=== PATIENT | female | born 1945 | race Caucasian/White ===

== ENCOUNTER 2022-03-13 16:18 | Emergency (ER) | payer OTHER, SELFPAY ==
[2022-03-13] VITALS (20 sets, daily range): BP systolic 140–193; BP diastolic 70–92; PULSE 86–98; RESP 13–26; TEMP 36.7; O2SAT 93–96; BMI 24.3
--- NOTE | 2022-03-13 16:25 | DI.CT.S_ITS ---
PROCEDURE: CT ANGIO HEAD INDICATIONS: bleed TECHNIQUE: After the administration of intravenous contrast, 1 mm thick sections acquired through the [place] [facility] [place]. Postcontrast 4.5 mm thick sections then re-acquired from the foramen magnum to the vertex. 10 mm thick jkcxibg-hzfmxvhkx-skjtzklppw (MIP) reformats were acquired of the central intracranial vasculature. For radiation dose reduction, the following was used: automated exposure control, adjustment of mA and/or kV according to patient size. COMPARISON: [facility], CT, CT STROKE, 03/13/2022, 16:22. FINDINGS: Image quality: Excellent. Anterior circulation: Intracranial internal carotid arteries demonstrate mild atherosclerotic calcifications without significant stenosis. The flow within the paired anterior cerebral arteries is normal and symmetric. The flow within the middle cerebral arteries is normal and symmetric, although the MCA branches on the left are displaced superiorly due to mass effect. The anterior communicating artery is seen. No aneurysms are seen. Posterior circulation: Visualized portions of the vertebral arteries demonstrate normal caliber, and join to form a normal appearing basilar artery. A prominent left posterior communicating artery is seen with hypoplastic P1 segment of the left [employer]IST, a normal variant. Flow within the posterior cerebral arteries is otherwise normal and symmetric. No aneurysms are seen. CSF spaces: Basal cisterns are patent. No extra-axial fluid collections. Brain: Hyperdense intraparenchymal hematoma is again seen in the left temporal lobe with surrounding vasogenic edema. There is mild mass effect with narrowing of the left lateral ventricle but no significant midline shift. Skull and face: Calvarium and facial bones appear intact, without suspicious lesions. Sinuses: Visualized sinuses and mastoids are clear. IMPRESSION: 1. Left temporal lobe intraparenchymal hematoma is redemonstrated as seen on the noncontrast CT performed immediately prior. Mass-effect is again seen with mild narrowing of the left lateral ventricle without midline shift. Enhancement of the adjacent parenchyma within the anterior left temporal lobe may be secondary to breakdown of the blood-brain barrier versus an underlying enhancing mass. Recommend MRI of the brain with and without contrast when clinically feasible for further evaluation. 2. No intracranial aneurysm is seen. No large vessel occlusion identified. Approved by: Kennedy Smalls M.D. on 03/13/2022 at 17:12
--- NOTE | 2022-03-13 16:25 | DI.CT.S_ITS ---
PROCEDURE: CT STROKE INDICATIONS: bleed. RIGHT SIDED FACIAL DROOP TECHNIQUE: Noncontrast 4.5 mm thick angled axial sections acquired from the foramen magnum to the vertex, with coronal reformats. For radiation dose reduction, the following was used: automated exposure control, adjustment of mA and/or kV according to patient size. COMPARISON: None. FINDINGS: Image quality: Excellent. CSF spaces: Basal cisterns are patent. No extra-axial fluid collections. The ventricles are symmetric in size and shape. Brain: There is a hyperdense mass in the left temporal lobe measuring 3.2 cm AP, 1.7 cm transverse and 1.5 cm cephalocaudal, compatible with acute hemorrhage. Smaller foci hyperdensity are seen inferior to the mass, compatible with small foci of intraparenchymal bleed. There is cerebral edema in the left temporal lobe with the area involved measuring 5.8 x 3.1 x 4.4 cm. No significant midline shift. No intracranial bleeds or masses. There is cerebral volume loss for age, with resultant ventricular and sulcal prominence. There are periventricular and deep white matter chronic small vessel ischemic changes. There is intracranial internal carotid artery atherosclerosis. Skull and face: Calvarium and visualized facial bones appear intact, without suspicious lesions. Sinuses: Visualized sinuses and mastoids are clear. IMPRESSION: Acute intracranial hemorrhage involving the left temporal lobe. There is prominent cerebral edema surrounding the hemorrhage. No midline shift. Differential diagnoses are intratumoral hemorrhage versus hemorrhagic stroke. The result was discussed with Dr. Pace prior to dictation. This study fulfills neurological imaging criteria for inclusion or exclusion of acute stroke therapies based on available published neurological guidelines. Dictated by: Norberto Batres M.D. on 03/13/2022 at 16:31 Approved by: Norberto Batres M.D. on 03/13/2022 at 16:36
--- NOTE | 2022-03-13 16:26 | ED_ITS ---
HPI - Neuro Symptoms/Deficit General Chief Complaint: Neuro Symptoms/Deficit Stated Complaint: Code Stroke Time Seen by Provider: 03/13/22 16:25 History of Present Illness HPI Narrative: 77-year-old female nonsmoker with out any reported chronic medical problems presents by EMS for evaluation of stroke. Her last known normal was about 11:00 a.m. today. She was out with family or friends who noted that she was beginning to get a bit confused and slurring her words with facial droop on the right side. Over the course of the afternoon she became increasingly confused and has had some weakness of her right upper extremity. She denies any trauma or head injury and she takes no blood thinners. In the field blood pressures were in the 190s, she is activated as a code stroke and taken directly to CT. Related Data Allergies Allergy/AdvReac Type Severity Reaction Status Date / Time No Known Drug Allergies Allergy Verified 03/13/22 16:45 Review of Systems Review of Systems Narrative: GENERAL: Denies chills, fatigue, malaise, fever, sweats. HEENT: Denies sinus pain, ear pain, sore throat, difficulty swallowing, dizz iness. RESPIRATORY: Denies dyspnea, cough, wheezing, hemoptysis, sputum. CARDIOVASCULAR: Denies chest pain, palpitations, orthopnea, edema, GASTROINTESTINAL: Denies nausea, vomiting, abdominal pain, diarrhea, constipation, melena. : Denies dysuria, frequency, incontinence, hematuria, urinary retention. MUSCULOSKELETAL: denies weakness, joint pain, or bony pain SKIN: Denies rash, skin lesions, or other NEUROLOGIC: See HPI PSYCHIATRIC: No concerning psychosocial issues. 12 point review of systems is negative except for those stated above Exam Narrative Exam Narrative: GENERAL: [77] year old patient appears stated age. Well-developed patient, in mild distress. GCS15 HEAD: Atraumatic. Normocephalic. EYES: Pupils equal round and reactive. Extraocular motions intact. No scleral icterus. No injection or drainage. ENT: Nose without bleeding, purulent drainage. Throat without erythema, to nsillar hypertrophy or exudate. Airway patent. NECK: Trachea midline. Non tender CARDIOVASCULAR: Regular rate and rhythm without murmurs, gallops, or rubs. RESPIRATORY: Clear to auscultation. Breath sounds equal bilaterally. No wheezes, rales, or rhonchi. GASTROINTESTINAL: Abdomen soft, non-tender, nondistended. EXTREMITIES: No edema or joint tenderness. BACK: Nontender without deformity or crepitance. No flank tenderness. NEURO: AOx3. SKIN: No rash or erythema of visible areas Initial Vital Signs Initial Vital Signs: Vital Signs Pulse Rate 97 H 03/13/22 16:35 Respiratory Rate 15 03/13/22 16:35 Pulse Oximetry 96 03/13/22 16:35 Oxygen Delivery Method 03/13/22 16:35 Scores NIH Stroke Scale Level of Conciousness: Alert, keenly responsive Ask month/age: Answers both questions correctly. Open/close eyes, close hand: Performs both tasks correctly Best gaze horizontal: Normal Visual roque: No visual loss Facial palsy: Minor paralysis, flattened nasolabial fold, asymmetry on smiling Left arm drift: No drift for full 10 sec Right arm drift: Drifts down, not to bed Left leg drift: No drift for full 5 sec Right leg drift: No drift for full 5 sec Limb ataxia: Absent Sensory on face/arms/legs: Normal, no sensory loss Best language: No aphasia, normal Dysarthria: Normal Extinction or inattention: No abnormality Total NIH Stroke scale score: 2 Course Orders Ordered: Discontinued Medications Nicardipine HCl 25 mg/ Sodium (Chloride) 250 mls @ 50 mls/hr IV TITRATE KARLO; Protocol Last Titration: 03/13/22 17:40 Dose: 5 mg/hr, 50 mls/hr Documented By: Admin: 03/13/22 16:48 Dose: 5 mg/hr, 50 mls/hr Documented By: AT Nicardipine HCl 25 mg/ Sodium (Chloride) 250 mls @ 50 mls/hr IV TITRATE KARLO; Protocol Last Admin: 03/13/22 17:19 Dose: Not Given Documented By: ASHLEY Consultations Consultation #1: Call to [facility] [place]. They are on another Code Stroke will call back Time: 16:40 Consultation #2: Discussed case with on-call stroke at [facility] ([place]), happy to accept patient, requests blood pressure control with nicardipine below 160. Request call back with coagulation studies Consultation #3: call back to [facility], ED provider happy to accept in transfer to their ED. [facility] en route. Patient and family aware of and in agreement with plan Vital Signs Vital signs: Vital Signs - 8 hr 03/13/22 16:37 03/13/22 16:35 03/13/22 16:37 Pulse Rate 95 H 97 H 96 H Respiratory Rate 15 15 15 Blood Pressure 166/77 H Pulse Oximetry 95 96 95 Oxygen Delivery Method Room Air Room Air 03/13/22 16:37 03/13/22 16:40 03/13/22 16:40 Pulse Rate 98 H Respiratory Rate 18 Blood Pressure 166/92 H 166/77 H Pulse Oximetry 94 Oxygen Delivery Method 03/13/22 16:45 03/13/22 16:45 03/13/22 16:50 Pulse Rate 94 H Respiratory Rate 18 Blood Pressure 193/86 H 181/84 H Pulse Oximetry 93 Oxygen Delivery Method 03/13/22 16:50 03/13/22 16:55 03/13/22 16:55 Pulse Rate 88 87 Respiratory Rate 15 13 Blood Pressure 159/76 H Pulse Oximetry 96 95 Oxygen Delivery Method Room Air MDM - Neuro Symptoms/Deficit Lab Data Result diagrams: 03/13/22 16:20 03/13/22 16:20 Labs: Lab Results 03/13/22 03/13/22 03/13/22 Range/Units 16:20 16:20 16:20 WBC 7.3 (4.5-11.0) X10^3/uL RBC 4.42 (4.0-5.2) X10^6/uL Hgb 14.5 (12.0-16.0) g/dL Hct 42.9 (36-46) % MCV 96.9 (80-100) fL MCH 32.7 (26-34) PG MCHC 33.7 (30-36) % RDW 12.9 (11.6-14.8) % Plt Count 162 (150-400) X10^3/uL Neut % (Auto) 82.7 H (50-75) % Lymph % (Auto) 13.4 L (25-40) % [place] % (Auto) 3.0 (3-14) % Eos % (Auto) 0.4 L (2-4) % Baso % (Auto) 0.5 (0-2) % Neut # (Auto) 6000 (9810-0400) /uL Lymph # (Auto) 1000 L (0510-0145) /uL [place] # (Auto) 200 (0-900) /uL Eos # (Auto) 0 (0-450) /uL Baso # (Auto) 0 (0-100) /uL PT 11.0 (10.1-12.7) SECONDS INR 1.0 (0.9-1.3) APTT 24 L (26-36) SECONDS Sodium 139 (137-145) mmol/L Potassium 4.7 (3.4-5.1) mmol/L Chloride 100 (98-107) mmol/L Carbon Dioxide 30 (22-32) mmol/L BUN 16 (7-17) mg/dL Creatinine 0.70 (0.52-1.04) mg/dL Estimated GFR > 60 (>60) mL/min BUN/Creatinine Ratio 22.9 H (6-22) Glucose 134 H (80-110) mg/dL Calcium 9.6 (8.4-10.2) mg/dL Total Bilirubin 0.8 (0.2-1.3) mg/dL AST 49 H (14-36) IU/L ALT 29 (<35) IU/L Alkaline Phosphatase 98 (38-126) U/L Total Creatine Kinase 243 H (30-135) U/L CK-MB (CK-2) 7.27 H (<2.37) ng/mL CK-MB (CK-2) Rel Index 3.0 (1.5-5.0) % Troponin I < 0.012 (0.01-0.034) ng/mL Total Protein 8.3 H (6.3-8.2) g/dL Albumin 4.6 (3.5-5.0) g/dL Globulin 3.7 (1.7-4.1) g/dL Albumin/Globulin Ratio 1.2 (1.0-2.8) Urine Color Urine Appearance Urine pH (4.5-8.0) Ur Specific [place] (1.000-1.035) Urine Protein (Negative) Urine Glucose (UA) (Negative) g/dL Urine Ketones (NEGATIVE) Urine Occult Blood (Negative) Urine Nitrate (Negative) Urine Bilirubin (NEGATIVE) Urine Urobilinogen (0.2) E.U./dL Ur Leukocyte Esterase (NEGATIVE) Urine RBC (0-5/HPF) Urine WBC (0-5/HPF) Ur Squamous Epith Cells (0-5/HPF) Amorphous Sediment Urine Bacteria (None) Urine Mucus (Negative) Ur Culture Indicated? U Opiates 300ng/mL cut (Negative) Ur Oxycodone Screen (Negative) Urine Methadone Screen (Negative) Ur Barbiturates Screen (Negative) U Tricyclic Antidepress (Negative) Ur Phencyclidine Scrn (Negative) Ur Amphetamines Screen (Negative) U Methamphetamines Scrn (Negative) Ur MDMA Scrn (Ecstasy) (Negative) U Benzodiazepines Scrn (Negative) Urine Cocaine Screen (Negative) U Marijuana (THC) Screen (Negative) Ethyl Alcohol < 10 ( - 10) mg/dL SARS-CoV-2 (PCR) (Negative) 03/13/22 03/13/22 03/13/22 Range/Units 16:36 17:13 17:13 WBC (4.5-11.0) X10^3/uL RBC (4.0-5.2) X10^6/uL Hgb (12.0-16.0) g/dL Hct (36-46) % MCV (80-100) fL MCH (26-34) PG MCHC (30-36) % RDW (11.6-14.8) % Plt Count (150-400) X10^3/uL Neut % (Auto) (50-75) % Lymph % (Auto) (25-40) % [place] % (Auto) (3-14) % Eos % (Auto) (2-4) % Baso % (Auto) (0-2) % Neut # (Auto) (0929-3312) /uL Lymph # (Auto) (0476-4447) /uL [place] # (Auto) (0-900) /uL Eos # (Auto) (0-450) /uL Baso # (Auto) (0-100) /uL PT (10.1-12.7) SECONDS INR (0.9-1.3) APTT (26-36) SECONDS Sodium (137-145) mmol/L Potassium (3.4-5.1) mmol/L Chloride (98-107) mmol/L Carbon Dioxide (22-32) mmol/L BUN (7-17) mg/dL Creatinine (0.52-1.04) mg/dL Estimated GFR (>60) mL/min BUN/Creatinine Ratio (6-22) Glucose (80-110) mg/dL Calcium (8.4-10.2) mg/dL Total Bilirubin (0.2-1.3) mg/dL AST (14-36) IU/L ALT (<35) IU/L Alkaline Phosphatase (38-126) U/L Total Creatine Kinase (30-135) U/L CK-MB (CK-2) (<2.37) ng/mL CK-MB (CK-2) Rel Index (1.5-5.0) % Troponin I (0.01-0.034) ng/mL Total Protein (6.3-8.2) g/dL Albumin (3.5-5.0) g/dL Globulin (1.7-4.1) g/dL Albumin/Globulin Ratio (1.0-2.8) Urine Color Yellow Urine Appearance Clear Urine pH 6.0 (4.5-8.0) Ur Specific [place] 1.020 (1.000-1.035) Urine Protein Negative (Negative) Urine Glucose (UA) Negative (Negative) g/dL Urine Ketones Negative (NEGATIVE) Urine Occult Blood Trace-intact (Negative) Urine Nitrate Negative (Negative) Urine Bilirubin Negative (NEGATIVE) Urine Urobilinogen 0.2 (0.2) E.U./dL Ur Leukocyte Esterase Negative (NEGATIVE) Urine RBC 1-5/hpf (0-5/HPF) Urine WBC 1-5/hpf (0-5/HPF) Ur Squamous Epith Cells 1-5 /hpf (0-5/HPF) Amorphous Sediment 1+ Urine Bacteria None seen (None) Urine Mucus 1+ H (Negative) Ur Culture Indicated? Cult not indicated U Opiates 300ng/mL cut Negative (Negative) Ur Oxycodone Screen Negative (Negative) Urine Methadone Screen Negative (Negative) Ur Barbiturates Screen Negative (Negative) U Tricyclic Antidepress Negative (Negative) Ur Phencyclidine Scrn Negative (Negative) Ur Amphetamines Screen Negative (Negative) U Methamphetamines Scrn Negative (Negative) Ur MDMA Scrn (Ecstasy) Negative (Negative) U Benzodiazepines Scrn Negative (Negative) Urine Cocaine Screen Negative (Negative) U Marijuana (THC) Screen Positive H (Negative) Ethyl Alcohol ( - 10) mg/dL SARS-CoV-2 (PCR) Negative (Negative) Point of Care Testing Glucose POC [address] scan - head: Radiologist's Impression: Close Head CTA 03/13/[address] (Signed) Norberto Batres - 03/13/22 Launch?[address] [address] [address] Scan Report Signed Patient: Mary Salmon MR#: [id number] : 1945 Acct:[id number] Age/Sex: 77 / F Date of Service: 03/13/22 Loc: ED Accession Number: [id number] ?? Procedure: CT Stroke Ordering Provider: Samy Pace D.O. PROCEDURE:? CT STROKE ? INDICATIONS:? bleed.? RIGHT SIDED FACIAL DROOP ? TECHNIQUE:? Noncontrast 4.5 mm thick angled axial sections acquired from the foramen magnum to the vertex, with coronal reformats.? For radiation dose reduction, the following was used:? automated exposure control, adjustment of mA and/or kV according to patient size.? ? COMPARISON:? None. ? FINDINGS:? Image quality:? Excellent.? ? CSF spaces:? Basal cisterns are patent.? No extra-axial fluid collections.? The ventricles are symmetric in size and shape.? ? Brain:? There is a hyperdense mass in the left temporal lobe measuring 3.2 cm AP, 1.7 cm transverse and 1.5 cm cephalocaudal, compatible with acute hemorrhage.? Smaller foci hyperdensity are seen inferior to the mass, compatible with small foci of intraparenchymal bleed.? There is cerebral edema in the left temporal lobe with the area involved measuring 5.8 x 3.1 x 4.4 cm.? No significant midline shift.? No intracranial bleeds or masses.? There is cerebral volume loss for age, with resultant ventricular and sulcal prominence.? There are periventricular and deep white matter chronic small vessel ischemic changes.? There is intracranial internal carotid artery atherosclerosis.? ? Skull and face:? Calvarium and visualized facial bones appear intact, without suspicious lesions.? ? Sinuses:? Visualized sinuses and mastoids are clear.? ? IMPRESSION:? Acute intracranial hemorrhage involving the left temporal lobe.? There is prominent cerebral edema surrounding the hemorrhage.? No midline shift.? Differential diagnoses are intratumoral hemorrhage versus hemorrhagic stroke. ? The result was discussed with Dr. Pace prior to dictation. ? This study fulfills neurological imaging criteria for inclusion or exclusion of acute stroke therapies based on available published neurological guidelines.? ? ? Dictated by: Norberto Batres M.D. on 03/13/2022 at 16:31 ? ? Approved by: Norberto Batres M.D. on 03/13/2022 at 16:36 ? CT Head Angio: Radiologist's Impression: [address] [address] [address] Scan Report Signed Patient: Mary Salmon MR#: [id number] : 1945 Acct:[id number] Age/Sex: 77 / F Date of Service: 03/13/22 Loc: ED Accession Number: [id number] ?? Procedure: CT angio head Ordering Provider: Samy Pace D.O. PROCEDURE:? CT ANGIO HEAD ? INDICATIONS:? bleed ? TECHNIQUE:? After the administration of intravenous contrast, 1 mm thick sections acquired through the [place] [facility] [place].? Postcontrast 4.5 mm thick sections then re-acquired from the foramen magnum to the vertex.? 10 mm thick jzyxdub-keiyyolle-ewdlzoxvtb (MIP) reformats were acquired of the central intracranial vasculature.? For radiation dose reduction, the following was used:? automated exposure control, adjustment of mA and/or kV according to patient size.? ? COMPARISON:? [facility], CT, CT STROKE, 03/13/2022, 16:22. ? FINDINGS:? Image quality:? Excellent.? ? Anterior circulation:? Intracranial internal carotid arteries demonstrate mild atherosclerotic calcifications without significant stenosis.? The flow within the paired anterior cerebral arteries is normal and symmetric.? The flow within the middle cerebral arteries is normal and symmetric, although the MCA branches on the left are displaced superiorly due to mass effect.? The anterior communicating artery is seen.? No aneurysms are seen.? ? Posterior circulation:? Visualized portions of the vertebral arteries demonstrate normal caliber, and join to form a normal appearing basilar artery.? A prominent left posterior communicating artery is seen with hypoplastic P1 segment of the left REGISTERED NURSES, a normal variant.? Flow within the posterior cerebral arteries is otherwise normal and symmetric.? No aneurysms are seen.? ? CSF spaces:? Basal cisterns are patent.? No extra-axial fluid collections.? ? Brain:? Hyperdense intraparenchymal hematoma is again seen in the left temporal lobe with surrounding vasogenic edema.? There is mild mass effect with narrowing of the left lateral ventricle but no significant midline shift. ? Skull and face:? Calvarium and facial bones appear intact, without suspicious lesions.? ? Sinuses:? Visualized sinuses and mastoids are clear.? ? IMPRESSION:? 1. Left temporal lobe intraparenchymal hematoma is redemonstrated as seen on the noncontrast CT performed immediately prior.? Mass-effect is again seen with mild narrowing of the left lateral ventricle without midline shift.? Enhancement of the adjacent parenchyma within the anterior left temporal lobe may be secondary to breakdown of the blood-brain barrier versus an underlying enhancing mass.? Recommend MRI of the brain with and without contrast when clinically feasible for further evaluation. ? 2. No intracranial aneurysm is seen.? No large vessel occlusion identified. ? ? ? Approved by: Kennedy Smalls M.D. on 03/13/2022 at 17:12? Critical Care Time Critical Care Time Critical Care Time: Yes Total Critical Care Time: 30 Attestation: The high probability of a clinically significant, sudden or life threatening deterioration of the [Neuro] system(s) required my full and direct attention, intervention and personal management. The aggregate critical care time was [30] minutes. This time is in addition to time spent performing reported procedures but includes the following: [x] Data Review and interpretation [x] Patient assessment and monitoring of vital signs [x] Documentation [x] Medication orders and management Discharge Plan Departure Patient Disposition: [facility] Clinical Impression: Intraparenchymal hemorrhage of brain, HTN (hypertension)
[2022-03-13 16:34] LABS: Add Manual Diff / Slide Review NO; Basophils Absolute Auto 0 /uL (0-100); Basophils Percent Auto 0.5 % (0-2); Eosinophils Absolute Auto 0 /uL (0-450); Eosinophils Percent Auto 0.4 % (2-4); Hematocrit 42.9 % (36-46); Hemoglobin 14.5 g/dL (12.0-16.0); Lymphocytes Absolute Auto 1000 /uL (1100-4500); Lymphocytes Percent Auto 13.4 % (25-40); Mean Corpuscular HGB Conc 33.7 % (30-36); Mean Corpuscular Hemoglobin 32.7 PG (26-34); Mean Corpuscular Volume 96.9 fL (80-100); Monocytes Absolute Auto 200 /uL (0-900); Neutrophils Absolute Auto 6000 /uL (1500-7000); Neutrophils Percent Auto 82.7 % (50-75); Platelet Count 162 X10^3/uL (150-400); Red Blood Cell Count 4.42 X10^6/uL (4.0-5.2); Red Cell Distribution Width 12.9 % (11.6-14.8); White Blood Cell Count 7.3 X10^3/uL (4.5-11.0)
[2022-03-13] MEDS: NICARDIPINE 25 MG in SODIUM CHLORIDE 0.9% 240 ML 50 MG IV (16:48)
[2022-03-13 16:52] LABS: PTT Partial Thromboplastin Tim 24 SECONDS (26-36)
[2022-03-13 16:55] LABS: Alanine Aminotransferase 29 IU/L (<35); Albumin 4.6 g/dL (3.5-5.0); Albumin Globulin Ratio 1.2 (1.0-2.8); Alkaline Phosphatase 98 U/L (38-126); Aspartate Aminotransferase 49 IU/L (14-36); BUN Creatinine Ratio 22.9 (6-22); Bilirubin Total 0.8 mg/dL (0.2-1.3); Blood Urea Nitrogen 16 mg/dL (7-17); Calcium 9.6 mg/dL (8.4-10.2); Carbon Dioxide 30 mmol/L (22-32); Chloride 100 mmol/L (98-107); Creatine Kinase 243 U/L (30-135); Estimated Glomerular Filt Rate > 60 mL/min (>60); Ethanol (ETOH) < 10 mg/dL; Globulin 3.7 g/dL (1.7-4.1); Glucose 134 mg/dL (80-110); HEMOLYSIS 15 (0-50); Potassium 4.7 mmol/L (3.4-5.1); Sodium 139 mmol/L (137-145); Total Protein 8.3 g/dL (6.3-8.2)
[2022-03-13 17:05] LABS: Troponin I < 0.012 ng/mL (0.01-0.034)
[2022-03-13 17:09] LABS: Creatine Kinase MB 7.27 ng/mL (<2.37)
[2022-03-13 17:09] LABS: COVID19 -Nasal RAPID Negative (Negative)
[2022-03-13 17:49] LABS: Appearance Urine UA Clear; Color Urine UA Yellow
[2022-03-13 17:50] LABS: Bilirubin Urine UA NEGATIVE (NEGATIVE); Glucose Urine UA NEGATIVE (Negative); Ketones Urine UA NEGATIVE (NEGATIVE); Nitrite Urine UA NEGATIVE (Negative); Occult Blood Urine UA TRACE-INTACT (Negative); Protein Urine UA Negative (Negative); Urobilinogen Urine UA 0.2 E.U./dL (0.2)
[2022-03-13 17:51] LABS: Leukocyte Esterase Urine UA NEGATIVE (NEGATIVE)
[2022-03-13 18:02] LABS: Amorphous Sediment Urine 1+; Bacteria Urine None Seen; Culture Indicated Urine Cult Not Indicated; Mucus Urine 1+ (Negative); RBC Urine 1-5/HPF (0-5/HPF); Squamous Epithelial Cell Urine 1-5 /HPF (0-5/HPF); WBC Urine 1-5/HPF (0-5/HPF)
[2022-03-13 23:22] LABS: Ur Creatinine 20 (Normal); Ur Specific Gravity 1.025 (Normal)
[2022-03-13 23:23] LABS: UR Morphine/Opiate cutoff 300 Negative (Negative); Urine Amphetamines Negative (Negative); Urine Barbiturates Negative (Negative); Urine Benzodiazepines Negative (Negative); Urine Cocaine Negative (Negative); Urine MDMA Negative (Negative); Urine Methadone Negative (Negative); Urine Methamphetamines Negative (Negative); Urine Oxycodone Negative (Negative); Urine Phencyclidine Negative (Negative); Urine Tetrahydrocannabinol Positive (Negative); Urine Tricyclic Antidepressant Negative (Negative); Urine pH 5 (Normal)
== END 2022-03-13 17:41 | disposition short-term general hospital (02) ==
PROVIDERS: Emergency Provider Emergency Medicine
DX: I61.9 Nontraumatic intracerebral hemorrhage, unspecified (principal); I10 Essential (primary) hypertension; Z20.822 Contact with and (suspected) exposure to COVID-19
CPT/HCPCS: 70450; 70496; 80053; 80305; 80320; 81001; 82550; 82553; 82962; 84484; 85025; 85610; 85730; 87635; 93005; 93010; 96365; 99285; 99291; 99292; C9803; Q9967